=== PATIENT | male | born 1965 ===

== ENCOUNTER 2019-04-07 15:27 | Emergency (ER) | payer OTHER, SELFPAY ==
[2019-04-07 15:33] VITALS: BP 141/73; PULSE 84; RESP 20; TEMP 37.1; O2SAT 95
--- NOTE | 2019-04-07 15:58 | ED.GENADUL_ITS ---
Discharge Plan Disposition Patient Disposition: HOME Discharge Details Chief Complaint: Cellulitis Clinical Impression: Leg swelling, Cellulitis of leg, right Primary Care Provider: Norma,Local ED Provider: Mainor Franks Home Meds and New Rx's Prescriptions: New cephalexin [Keflex] 500 mg capsule 500 mg PO QID Qty: 39 RF: 0 furosemide [Lasix] 20 mg tablet 20 mg PO DAILY Qty: 7 RF: 0 Discharge Instructions Instructions: Cellulitis (ED) Additional Instructions: Keep your legs elevated and stay off her feet for the next few days. Please take antibiotic as prescribed. Please take Lasix as prescribed to reduce swelling. Please contact a primary care physician to arrange follow-up. Return to the ER for any worsening or new concerning symptoms. Stand Alone Forms: Work Release Referrals: Josh Brewster DO [OSTEOPATHIC DOCTOR] - Medical Decision Making 53-year-old male smoker with history of presents with lower extremity edema right greater than left with erythema and weeping ulcers anterior right lower leg concerning for cellulitis. Patient is afebrile and hemodynamically stable. Unclear etiology for edema. He has had this in the past and cause was not determined after significant testing. Considered NAINA and mild CHF. BNP is within normal limits as his creatinine. Suspect likely lymphedema. Consider DVT. Fortunately ultrasound capability is not available this evening. I discussed this with the patient and he would prefer to come back tomorrow for ultrasound as opposed to alternative diagnostic treatment options. CBC is notable for leukocytosis. Plan to treat with Keflex. I will also give him 7 days of low-dose furosemide to hopefully improve swelling. Patient does not have a primary care physician in the area. I will refer the patient to care management to hopefully arrange timely outpatient follow-up. HPI General Mode of arrival: ambulatory . Date/Time Provider Initiated Documentation: 04/07/19 15:38 . Limitations to Documentation: no limitations . Information obtained by: patient . HPI Narrative: 53-year-old male with history of leg swelling in the past, presents with chief complaint of leg swelling. Patient notes he has not had leg swelling for some time and in the past with his prior primary care physician he had a significant work-up that was unremarkable. Over the past 2 weeks he has had persistent swelling of his legs right greater than left. Patient states that he sought care today because he was tired of having discomfort and noted some leakage from his right leg. Swelling and discomfort is moderate and no modifiers. Patient denies associated fever. Patient is interested in establishing primary care physician in the area. Related Data Home Medications Medication Instructions Recorded Confirmed cephalexin [Keflex] 500 mg PO QID #39 cap 04/07/19 furosemide [Lasix] 20 mg PO DAILY #7 tab 04/07/19 Previous Rx's Medication Instructions Recorded cephalexin [Keflex] 500 mg PO QID #39 cap 04/07/19 furosemide [Lasix] 20 mg PO DAILY #7 tab 04/07/19 Allergies Allergy/AdvReac Type Severity Reaction Status Date / Time No Known Allergies Allergy Unverified 04/07/19 15:38 General Stated Complaint: Cellulitis CASANDRA: 3 Review of Systems Review of Systems All systems reviewed & are unremarkable except as noted in HPI and below Constitutional Denies fever(s) PFSH Social History Smoking/Tobacco Use Status: Current every day Tobacco Type: cigarettes Alcohol Intake: never Drug use: Never Do you feel safe at home: Yes Do you feel safe in your relationship?: Yes Exam Const General: cooperative and no acute distress HENMT Head: normocephalic Mouth: moist mucous membranes Eyes Conjunctivae: normal conjunctivae Sclera: normal sclerae Neck Neck: trachea midline and supple Resp Auscultation: clear to auscultation bilaterally, no rales, no rhonchi and no wheezes Cardio Jugular venous pressure: no JVD Rate: regular rate and not tachycardic Rhythm: regular rhythm GI Palpation: soft, not firm, no guarding, no masses, not rigid and nontender Skin Rashes: rashes noted (Erythema right anterior lower leg with 2 weeping ulcers) Neuro General: alert, awake and tone normal Extrem General: no calf tenderness bilaterally and edema (1+ left, 2+ right, pitting, up to knees) Psych Appearance: grossly normal Course Vital Signs Temperature 37.1 C 04/07/19 15:33 Pulse 84 04/07/19 15:33 Respiratory Rate 20 04/07/19 15:33 Blood Pressure 141/73 H 04/07/19 15:33 Pulse Oximetry 95 04/07/19 15:33 Temperature 37.1 C 04/07/19 15:33 Temperature Source Temporal Artery Scan 04/07/19 15:33 Pulse 84 04/07/19 15:33 Respiratory Rate 20 04/07/19 15:33 Respiratory Effort Non-Labored 04/07/19 15:36 Blood Pressure 141/73 H 04/07/19 15:33 Blood Pressure Position Supine 04/07/19 15:33 Pulse Oximetry 95 04/07/19 15:33 Oxygen Delivery Method Room Air 04/07/19 15:33 Oxygen Flow Rate 0 04/07/19 15:33 Pain Level 8 04/07/19 15:33
[2019-04-07 16:30] LABS: ALT 29 U/L (12-78); AST 16 U/L (15-37); Albumin 3.4 g/dL (3.4-5.0); Alkaline Phosphatase 87 U/L (46-116); Anion Gap 8.4 mmol/L (3-11); BUN 17 mg/dL (7-18); Bilirubin, Total 0.4 mg/dL (0.2-1.0); CO2 29.6 mmol/L (21.0-32.0); CREATININE 1.21 mg/dL (0.70-1.30); Calcium 8.9 mg/dL (8.5-10.1); Chloride 102 mmol/L (98-107); Glucose 103 mg/dL (70-100); NT-proBNP 19 pg/mL; Potassium 4.2 mmol/L (3.5-5.1); Sodium 140 mmol/L (136-145)
[2019-04-07 16:37] LABS: Abs Immature Grans 0.09 k/cumm (0.0-0.09); Absolute Basophil Count 0.04 k/cumm (0.0-0.2); Absolute Eosinophil Count 0.21 k/cumm (0.0-0.7); Absolute Lymphocyte Count 2.23 k/cumm (1.2-3.4); Absolute Monocyte Count 1.16 k/cumm (0.11-0.7); Absolute Neutrophil Count 10.58 k/cumm (1.2-6.7); Basophils % 0.3; Eosinophils % 1.5; HCT 47.1 % (40.0-50.0); HGB 15.5 g/dL (13.5-17.5); Immature Grans % 0.6; Lymphocytes % 15.6; Mean Corp. HGB Concentration 32.9 g/dL (32.0-36.0); Mean Corpuscular Hemoglobin 29.1 pg (27.0-33.0); Mean Corpuscular Volume 88.5 fL (80-95); Mean Platelet Volume 9.6 fL (8.0-11.0); Monocytes % 8.1; Neutrophils % 73.9; Platelet Count 355 x1000/uL (130-400); RBC 5.32 m/cumm (4.50-6.00); RBC Distribution Width 13.4 % (11.8-14.1); White Blood Cell Count 14.31 k/cumm (4.4-10.8)
--- NOTE | 2019-04-07 17:25 | NUR.NOTE ---
Nursing Note: Referral faxed to [facility] for follow up this week. Dr. Brewster is patient registration manager for telephone call today. Patient to have lower extremity US Monday. Kenya Clancy.
[2019-04-07 17:37] VITALS: BP 145/76; PULSE 76; RESP 19; TEMP 37.1; O2SAT 95
[2019-04-07] MEDS: Cephalexin 500 MG CAP PO (17:37)
== END 2019-04-07 17:40 | disposition home or self-care (01) ==
LOC: ER 16:17
PROVIDERS: Emergency Provider Student in an Organized Health Care Education/Training Program
DX: L03.115 Cellulitis of right lower limb (principal); R22.41 Localized swelling, mass and lump, right lower limb
CPT/HCPCS: 36415; 80053; 99283; 83880; 85025

== ENCOUNTER 2019-04-08 09:07 | Emergency (ER) | payer OTHER, SELFPAY ==
[2019-04-08 09:12] VITALS: BP 168/94; PULSE 88; RESP 16; TEMP 36.6; O2SAT 96
--- NOTE | 2019-04-08 09:16 | W.ED.GENAD ---
Discharge Plan Disposition Patient Disposition: HOME Condition: Stable Discharge Details Chief Complaint: Recheck Clinical Impression: Cellulitis of leg, right Primary Care Provider: None,None ED Provider: Bernard Ortega Home Meds and New Rx's Prescriptions: No Action cephalexin [Keflex] 500 mg capsule 500 mg PO QID Qty: 39 RF: 0 furosemide [Lasix] 20 mg tablet 20 mg PO DAILY Qty: 7 RF: 0 Discharge Instructions Additional Instructions: Follow up with Dr. Goel as you have scheduled if you have high fevers, severe worsening pain or redness spreading signficantly up the leg return to the emergency department Medical Decision Making 53 yo male comes in after having an u/s of his right leg. He was seen yesterday for right leg swelling/redness and dx'd with cellulitis and started on cephalexin and furosemide. His dvt u/s per Dr. colmenares is negative for dvt. He states his leg feels better today, has a abrasnion of right lower mid leg with 3-4cm surrounding erythema consistent with cellulitis. Has no severe pain or crepitus to suggest nec fasc and no fever and appears well so doubt sepsis at this time. Will have hi continue abx and he will f/u with Dr. Goel tomorrow for his appt per pt, return precautions given Differential Diagnosis cellulitis, dvt HPI General Mode of arrival: ambulatory. Date/Time Provider Initiated Documentation: 04/08/19 09:09. Limitations to Documentation: no limitations. Information obtained by: patient. History of Present Illness 53 year old M presents to the emergency department with the chief complaint of right leg redness/swelling, described as moderate, Quality is described as burning, and is localized to the right and lower extremity. Patient reports no radiation. Patient started experiencing this day(s) (2) and it has been constant. No relieving factors improve symptom(s), No exacerbating factors reported . Patient notes no other symptoms.. Related Data Home Medications Medication Instructions Recorded Confirmed cephalexin [Keflex] 500 mg PO QID #39 cap 04/07/19 furosemide [Lasix] 20 mg PO DAILY #7 tab 04/07/19 Previous Rx's Medication Instructions Recorded cephalexin [Keflex] 500 mg PO QID #39 cap 04/07/19 furosemide [Lasix] 20 mg PO DAILY #7 tab 04/07/19 Allergies Allergy/AdvReac Type Severity Reaction Status Date / Time No Known Allergies Allergy Unverified 04/07/19 15:38 General CASANDRA: 3 Review of Systems Review of Systems All systems reviewed & are unremarkable except as noted in HPI and below Constitutional Denies chills, Denies fever(s) and Denies weakness Cardiovascular Denies chest pain and Denies dyspnea Respiratory Denies dyspnea Gastrointestinal Denies abdominal pain, Denies nausea and Denies vomiting Neurologic Denies weakness PFSH Social History Smoking/Tobacco Use Status: Current every day Tobacco Type: cigarettes Alcohol Intake: never Drug use: Never Substance use type: unknown Do you feel safe at home: Yes Do you feel safe in your relationship?: Yes Exam Const General: no acute distress Orientation: alert HENMT Head: normal to inspection Ears: external ears normal General nose exam: external nose normal Mouth: moist mucous membranes Eyes General: appearance normal, both eyes and all related structures Neck Neck: normal visual inspection Resp Effort & Inspection: normal respiratory effort and able to speak in complete sentences Cardio Rate: regular rate Skin General skin exam: elasticity normal Neuro General: alert and oriented x3 Extrem General: full ROM and normal capillary refill Psych Mental Status: mental status grossly normal
--- NOTE | 2019-04-08 09:29 | ED.GENADUL_ITS ---
Discharge Plan Disposition Patient Disposition: HOME Condition: Stable Discharge Details Chief Complaint: Recheck Clinical Impression: Cellulitis of leg, right Primary Care Provider: None,None ED Provider: Bernard Ortega Home Meds and New Rx's Prescriptions: No Action cephalexin [Keflex] 500 mg capsule 500 mg PO QID Qty: 39 RF: 0 furosemide [Lasix] 20 mg tablet 20 mg PO DAILY Qty: 7 RF: 0 Discharge Instructions Additional Instructions: Follow up with Dr. Goel as you have scheduled if you have high fevers, severe worsening pain or redness spreading signficantly up the leg return to the emergency department Medical Decision Making 53 yo male comes in after having an u/s of his right leg. He was seen yesterday for right leg swelling/redness and dx'd with cellulitis and started on cephalexin and furosemide. His dvt u/s per Dr. colmenares is negative for dvt. He states his leg feels better today, has a abrasnion of right lower mid leg with 3-4cm surrounding erythema consistent with cellulitis. Has no severe pain or crepitus to suggest nec fasc and no fever and appears well so doubt sepsis at this time. Will have hi continue abx and he will f/u with Dr. Goel tomorrow for his appt per pt, return precautions given Differential Diagnosis cellulitis, dvt HPI General Mode of arrival: ambulatory . Date/Time Provider Initiated Documentation: 04/08/19 09:09 . Limitations to Documentation: no limitations . Information obtained by: patient . History of Present Illness 53 year old M presents to the emergency department with the chief complaint of right leg redness/swelling, described as moderate, Quality is described as burning, and is localized to the right and lower extremity. Patient reports no radiation. Patient started experiencing this day(s) (2) and it has been constant. No relieving factors improve symptom(s), No exacerbating factors reported . Patient notes no other symptoms.. Related Data Home Medications Medication Instructions Recorded Confirmed cephalexin [Keflex] 500 mg PO QID #39 cap 04/07/19 furosemide [Lasix] 20 mg PO DAILY #7 tab 04/07/19 Previous Rx's Medication Instructions Recorded cephalexin [Keflex] 500 mg PO QID #39 cap 04/07/19 furosemide [Lasix] 20 mg PO DAILY #7 tab 04/07/19 Allergies Allergy/AdvReac Type Severity Reaction Status Date / Time No Known Allergies Allergy Unverified 04/07/19 15:38 General CASANDRA: 3 Review of Systems Review of Systems All systems reviewed & are unremarkable except as noted in HPI and below Constitutional Denies chills, Denies fever(s) and Denies weakness Cardiovascular Denies chest pain and Denies dyspnea Respiratory Denies dyspnea Gastrointestinal Denies abdominal pain, Denies nausea and Denies vomiting Neurologic Denies weakness PFSH Social History Smoking/Tobacco Use Status: Current every day Tobacco Type: cigarettes Alcohol Intake: never Drug use: Never Substance use type: unknown Do you feel safe at home: Yes Do you feel safe in your relationship?: Yes Exam Const General: no acute distress Orientation: alert HENMT Head: normal to inspection Ears: external ears normal General nose exam: external nose normal Mouth: moist mucous membranes Eyes General: appearance normal, both eyes and all related structures Neck Neck: normal visual inspection Resp Effort & Inspection: normal respiratory effort and able to speak in complete sentences Cardio Rate: regular rate Skin General skin exam: elasticity normal Neuro General: alert and oriented x3 Extrem General: full ROM and normal capillary refill Psych Mental Status: mental status grossly normal
--- NOTE | 2019-04-08 09:37 | NUR.NOTE ---
pt dc home dc reviewed with pt able to verblize understanding ambulatory steady on dc vs Nursing Note:
== END 2019-04-08 09:45 | disposition home or self-care (01) ==
PROVIDERS: Emergency Provider Emergency Medicine
DX: L03.115 Cellulitis of right lower limb (principal)

== ENCOUNTER 2019-04-08 09:23 | Outpatient (CLI) | payer OTHER, SELFPAY ==
--- NOTE | 2019-04-08 08:40 | DI.US_ITS ---
SYMPTOM/DIAGNOSIS: BILATERAL LEG SWELLING BILATERAL LOWER EXTREMITY ULTRASOUND: Femoral and popliteal veins and visualized portions of the calf veins are freely compressible. No thrombus is visible. The Doppler venous wave form augments normally. There is no evidence of a Rodriguez's cyst or hematoma. IMPRESSION: Negative bilateral lower extremity ultrasound. No evidence of DVT.
--- NOTE | 2019-04-08 10:22 | PDOC.CMPRO ---
- If Service Date Differs Date of service: 04/08/19 Time of Service: 10:22 Care Management Progress Note LOTUS contacted 's office to confirm Alessandro has follow up scheduled with on 04/09/19 @ 0414. Patient is aware of the appointment. LOTUS faxed ED visit notes to Amando Olivares's office at [phone].
--- NOTE | 2019-04-08 10:26 | CMPROGNOTE_ITS ---
- If Service Date Differs Date of service: 04/08/19 Time of Service: 10:22 Care Management Progress Note LOTUS contacted 's office to confirm Alessandro has follow up scheduled with on 04/09/19 @ 1068. Patient is aware of the appointment. LOTUS faxed ED visit notes to Amando Olivares's office at [phone].
== END 2019-04-08 09:43 ==
PROVIDERS: Visit Provider Student in an Organized Health Care Education/Training Program
DX: R22.41 Localized swelling, mass and lump, right lower limb (principal); R22.42 Localized swelling, mass and lump, left lower limb
CPT/HCPCS: 93970

== ENCOUNTER 2019-04-10 00:54 | Outpatient (CLI) | payer OTHER, SELFPAY ==
--- NOTE | 2019-04-10 08:00 | DI.RAD_ITS ---
SYMPTOM/DIAGNOSIS: SOB, SMOKER PA AND LATERAL CHEST: The lungs are free of infiltrate. There is no pleural effusion. The cardiovascular structures are intact. SUMMARY: No evidence of acute cardiopulmonary disease.
== END 2019-04-10 01:14 ==
PROVIDERS: Visit Provider General Practice
DX: R06.02 Shortness of breath (principal); F17.200 Nicotine dependence, unspecified, uncomplicated
CPT/HCPCS: 71046